=== PATIENT | female | born 1960 | race Caucasian/White ===

== ENCOUNTER 2023-03-08 02:43 | Inpatient (IN) | payer OTHER ==
[2023-03-08 06:18] LABS: #Monocytes 0.6 thou/uL (0.11-0.59); #Neutrophils 9.2 thou/uL (1.40-6.50); %Basophils 0.4 % (0.0-1.0); %Eosinophils 0.1 % (0.0-10.0); %Monocytes 5.4 % (0.0-10.0); %Neutrophils 80.7 % (42.0-75.0); Hematocrit 37.3 % (36.0-47.0); Hemoglobin 12.7 g/dL (12.0-16.0); Mean Corpuscular Hemoglobin 30.6 pg (27.0-31.0); Mean Corpuscular Volume 89.9 fl (78.0-98.0); Mean Platelet Volume 10.3 fL (7.4-10.4); Platelet Count 159 10x3/uL (130-400); RBC Distribution Width 12.7 % (11.5-14.5); Red Blood Cell (RBC) Count 4.15 mill/uL (4.20-5.40); White Blood Cell (WBC) Count 11.4 10x3/uL (4.8-10.8)
[2023-03-08 06:46] LABS: ALT (SGPT) 14 U/L (8-55); AST (SGOT) 17 U/L (5-34); Albumin 4.2 g/dL (3.4-4.8); Alkaline Phosphatase 37 U/L (40-110); Anion Gap 17 mmol/L (10-20); BUN (Urea Nitrogen) 19 mg/dL (9.8-20.1); Bilirubin, Total 0.3 mg/dL (0.2-1.2); Calc. Creatinine Clearance 0 mL/min (70-130); Calcium 9.3 mg/dL (7.8-10.44); Carbon Dioxide 18 mmol/L (23-31); Chloride 107 mmol/L (98-107); Estimated GFR 81; Globulin 2.2 g/dL (2.4-3.5); Glucose 280 mg/dL (80-115); Potassium 3.9 mmol/L (3.5-5.1); Protein, Total 6.4 g/dL (5.8-8.1); Sodium 138 mmol/L (136-145)
[2023-03-08] MEDS ORDERED: Acetaminophen 500 MG TAB ONE (10:10)
[2023-03-08] MEDS ORDERED: Meclizine HCl 25 MG TAB ONE (13:40)
[2023-03-08] MEDS ORDERED: Ondansetron PF 4 MG/2 ML Vial IVP PRN (15:04)
[2023-03-08] MEDS ORDERED: Ondansetron ODT 4 MG TAB PO PRN (15:04)
[2023-03-08] MEDS ORDERED: Dextrose 50% Abboject 50 ML SYRINGE SLOW IVP PRN (16:27)
[2023-03-08] MEDS ORDERED: HumaLOG 300 UNITS/3 ML VIAL SC PRN (16:27)
[2023-03-08] MEDS ORDERED: Dextrose 5% in Water 1,000 ML IV PRN (16:27)
[2023-03-08] MEDS ORDERED: Glucagon 1 MG/ML KIT IM PRN (16:27)
[2023-03-08 16:37] VITALS: BMI 25.7
[2023-03-08] MEDS: Acetaminophen 325 MG TAB PO PRN (21:08)
[2023-03-08] MEDS: Amoxicillin/Potassium Clav 875 MG TAB PO SCH (21:09)
[2023-03-09 04:38] LABS: #Eosinphils 0.1 thou/uL (0.0-0.7); #Monocytes 0.9 thou/uL (0.11-0.59); #Neutrophils 6.7 thou/uL (1.40-6.50); %Basophils 0.4 % (0.0-1.0); %Eosinophils 0.7 % (0.0-10.0); %Lymphocytes 23.7 % (21.0-51.0); %Neutrophils 65.6 % (42.0-75.0); Hemoglobin 13.1 g/dL (12.0-16.0); Mean Corpuscular HGB CONC 33.6 g/dL (32.0-36.0); Mean Corpuscular Hemoglobin 30.4 pg (27.0-31.0); Mean Corpuscular Volume 90.5 fl (78.0-98.0); Mean Platelet Volume 10.6 fL (7.4-10.4); Platelet Count 173 10x3/uL (130-400); RBC Distribution Width 12.8 % (11.5-14.5); Red Blood Cell (RBC) Count 4.31 mill/uL (4.20-5.40); White Blood Cell (WBC) Count 10.1 10x3/uL (4.8-10.8)
[2023-03-09 05:00] LABS: Anion Gap 11 mmol/L (10-20); BUN (Urea Nitrogen) 15 mg/dL (9.8-20.1); Calc. Creatinine Clearance 90 mL/min (70-130); Calcium 8.8 mg/dL (7.8-10.44); Carbon Dioxide 23 mmol/L (23-31); Chloride 108 mmol/L (98-107); Estimated GFR 90; Glucose 160 mg/dL (80-115); Potassium 3.6 mmol/L (3.5-5.1); Sodium 138 mmol/L (136-145)
[2023-03-09] MEDS: Amoxicillin/Potassium Clav 875 MG TAB PO SCH ×2 (08:31→22:43)
[2023-03-09] MEDS: Meclizine HCl 12.5 MG TAB PO SCH (18:42)
[2023-03-09] MEDS: Acetaminophen 325 MG TAB PO PRN (23:04)
[2023-03-10] MEDS: Meclizine HCl 12.5 MG TAB PO SCH ×3 (03:25→17:39)
[2023-03-10 05:30] LABS: #Eosinphils 0.1 thou/uL (0.0-0.7); #Monocytes 0.7 thou/uL (0.11-0.59); #Neutrophils 5.4 thou/uL (1.40-6.50); %Basophils 0.4 % (0.0-1.0); %Eosinophils 0.6 % (0.0-10.0); %Lymphocytes 25.3 % (21.0-51.0); %Monocytes 8.4 % (0.0-10.0); %Neutrophils 64.7 % (42.0-75.0); Hematocrit 39.8 % (36.0-47.0); Hemoglobin 13.3 g/dL (12.0-16.0); Mean Corpuscular HGB CONC 33.4 g/dL (32.0-36.0); Mean Corpuscular Hemoglobin 30.1 pg (27.0-31.0); Mean Platelet Volume 10.1 fL (7.4-10.4); Platelet Count 168 10x3/uL (130-400); RBC Distribution Width 12.8 % (11.5-14.5); Red Blood Cell (RBC) Count 4.42 mill/uL (4.20-5.40); White Blood Cell (WBC) Count 8.3 10x3/uL (4.8-10.8)
[2023-03-10 06:05] LABS: Anion Gap 12 mmol/L (10-20); BUN (Urea Nitrogen) 17 mg/dL (9.8-20.1); Calc. Creatinine Clearance 90 mL/min (70-130); Calcium 8.7 mg/dL (7.8-10.44); Carbon Dioxide 22 mmol/L (23-31); Chloride 108 mmol/L (98-107); Estimated GFR 90; Glucose 186 mg/dL (80-115); Potassium 3.6 mmol/L (3.5-5.1); Sodium 138 mmol/L (136-145)
[2023-03-10] MEDS: Amoxicillin/Potassium Clav 875 MG TAB PO SCH ×2 (08:23→22:10)
[2023-03-10] MEDS: Acetaminophen 325 MG TAB PO PRN (22:10)
[2023-03-11] MEDS: Meclizine HCl 12.5 MG TAB PO SCH ×3 (03:23→17:30)
[2023-03-11 05:46] LABS: #Eosinphils 0.1 thou/uL (0.0-0.7); #Monocytes 0.8 thou/uL (0.11-0.59); #Neutrophils 4.9 thou/uL (1.40-6.50); %Basophils 0.3 % (0.0-1.0); %Lymphocytes 31.7 % (21.0-51.0); %Monocytes 8.8 % (0.0-10.0); %Neutrophils 57.4 % (42.0-75.0); Hematocrit 38.8 % (36.0-47.0); Mean Corpuscular HGB CONC 33.5 g/dL (32.0-36.0); Mean Corpuscular Hemoglobin 30.2 pg (27.0-31.0); Mean Corpuscular Volume 90.2 fl (78.0-98.0); Mean Platelet Volume 10.6 fL (7.4-10.4); Platelet Count 193 10x3/uL (130-400); RBC Distribution Width 12.9 % (11.5-14.5); White Blood Cell (WBC) Count 8.6 10x3/uL (4.8-10.8)
[2023-03-11 06:07] LABS: Anion Gap 13 mmol/L (10-20); BUN (Urea Nitrogen) 16 mg/dL (9.8-20.1); Calc. Creatinine Clearance 94 mL/min (70-130); Calcium 8.9 mg/dL (7.8-10.44); Carbon Dioxide 22 mmol/L (23-31); Chloride 106 mmol/L (98-107); Estimated GFR 95; Glucose 158 mg/dL (80-115); Potassium 3.6 mmol/L (3.5-5.1); Sodium 137 mmol/L (136-145)
[2023-03-11] MEDS: Amoxicillin/Potassium Clav 875 MG TAB PO SCH ×2 (08:44→20:58)
[2023-03-11] MEDS ORDERED: FLU VACC QS2023-24(6MOS UP)/PF 60 MCG/0.5 ML SYRINGE IM ONE (09:00)
[2023-03-11] MEDS: Polyethylene Glycol 3350 17 GM Packet PO SCH (11:45)
[2023-03-11] MEDS: Senokot S 8.6-50 MG TAB PO SCH ×2 (11:46→20:58)
[2023-03-11] MEDS: HumaLOG 300 UNITS/3 ML VIAL SC PRN (20:58)
[2023-03-12] MEDS: Meclizine HCl 12.5 MG TAB PO SCH ×3 (04:54→17:21)
[2023-03-12] MEDS: Senokot S 8.6-50 MG TAB PO SCH ×3 (09:05→20:35)
[2023-03-12] MEDS: Amoxicillin/Potassium Clav 875 MG TAB PO SCH ×2 (09:05→20:34)
[2023-03-12] MEDS: Polyethylene Glycol 3350 17 GM Packet PO SCH (09:05)
[2023-03-12 19:38] VITALS: BP 123/76; TEMP 98.2
[2023-03-12] MEDS: HumaLOG 300 UNITS/3 ML VIAL SC PRN (20:34)
== END 2023-03-12 21:23 | DRG 552 ==
LOC: ERS 02:43 → ERHOLD 15:09 → T4-A 20:48
PROVIDERS: ADMIT Hospitalist; ATTEND Family Medicine
DX: M48.02 Spinal stenosis, cervical region (principal); M47.12 Other spondylosis with myelopathy, cervical region; E11.40 Type 2 diabetes mellitus with diabetic neuropathy, unspecified; I10 Essential (primary) hypertension; E05.90 Thyrotoxicosis, unspecified without thyrotoxic crisis or storm; E78.5 Hyperlipidemia, unspecified; S62.521A Displaced fracture of distal phalanx of right thumb, initial encounter for closed fracture; S00.83XA Contusion of other part of head, initial encounter; W19.XXXA Unspecified fall, initial encounter; Z98.890 Other specified postprocedural states; Z91.81 History of falling; Z90.89 Acquired absence of other organs
CPT/HCPCS: 36415; 36416; 70450; 72125; 72141; 80048; 80053; 85025; 96360; 96361; J1815

== ENCOUNTER 2023-04-10 05:36 | Day surgery (SDC) | payer OTHER ==
[2023-04-09 11:17] VITALS: BMI 25.7
[2023-04-10] MEDS ORDERED: Thrombin 5000 UNITS/5 ML VIAL ONE (06:11)
[2023-04-10] MEDS ORDERED: Vancomycin 1 GM VIAL ONE (06:11)
[2023-04-10 06:35] LABS: #Eosinphils 0.1 thou/uL (0.0-0.7); #Monocytes 0.6 thou/uL (0.11-0.59); #Neutrophils 4.7 thou/uL (1.40-6.50); %Basophils 0.4 % (0.0-1.0); %Eosinophils 1.6 % (0.0-10.0); %Lymphocytes 26.4 % (21.0-51.0); %Monocytes 8.3 % (0.0-10.0); Hematocrit 41.4 % (36.0-47.0); Hemoglobin 13.7 g/dL (12.0-16.0); Mean Corpuscular HGB CONC 33.1 g/dL (32.0-36.0); Mean Corpuscular Hemoglobin 30.1 pg (27.0-31.0); Mean Platelet Volume 9.8 fL (7.4-10.4); Platelet Count 167 10x3/uL (130-400); RBC Distribution Width 12.7 % (11.5-14.5); Red Blood Cell (RBC) Count 4.55 mill/uL (4.20-5.40); White Blood Cell (WBC) Count 7.5 10x3/uL (4.8-10.8)
[2023-04-10] MEDS ORDERED: LevoFLOXacin 500 mg/D5W 100 ML BAG ONE (06:38)
[2023-04-10] MEDS ORDERED: Clindamycin/D5W 900 mg/50 ml Premix Bag ONE (06:51)
[2023-04-10 06:53] LABS: PTT 26.7 sec (22.9-36.1); Prothrombin Time 13.1 sec (12.0-14.7)
[2023-04-10] MEDS ORDERED: Fentanyl 250 MCG/5 ML VIAL ONE (07:07)
[2023-04-10] MEDS ORDERED: PROPOFOL 20 ML ONE (07:07)
[2023-04-10] MEDS ORDERED: ePHEDrine Sulfate 50 MG/10 ML VIAL ONE (07:27)
[2023-04-10] MEDS ORDERED: Rocuronium Bromide 10 MG/ML (10ML VIAL) ONE (07:31)
[2023-04-10] MEDS ORDERED: Ondansetron PF 4 MG/2 ML Vial ONE ×2 (07:31→08:39)
[2023-04-10] MEDS ORDERED: Dexamethasone 4 mg/ml Vial ONE (07:31)
[2023-04-10] MEDS ORDERED: SUGAMMADEX SODIUM 200 MG/2 ML VIAL ONE (08:38)
[2023-04-10] MEDS ORDERED: Ketorolac Tromethamine 30 MG/ML VIAL ONE (09:32)
[2023-04-10] MEDS ORDERED: fentaNYL 50 mcg/mL 1 mL Vial ONE (10:33)
== END 2023-04-10 13:15 | disposition home or self-care (01) ==
LOC: SDC 05:36
PROVIDERS: ATTEND Neurological Surgery
PROC: 0RG20A0 Fusion of 2 or more Cervical Vertebral Joints with Interbody Fusion Device, Anterior Approach, Anterior Column, Open Approach (ICD-10-PCS; principal; 2023-04-10)
PROC: 0RG00A0 Fusion of Occipital-cervical Joint with Interbody Fusion Device, Anterior Approach, Anterior Column, Open Approach (ICD-10-PCS; principal; 2023-04-10)
DX: M50.021 Cervical disc disorder at C4-C5 level with myelopathy (principal); M50.022 Cervical disc disorder at C5-C6 level with myelopathy; M47.12 Other spondylosis with myelopathy, cervical region; E11.9 Type 2 diabetes mellitus without complications; E03.9 Hypothyroidism, unspecified; M10.9 Gout, unspecified; Z79.84 Long term (current) use of oral hypoglycemic drugs; Z79.899 Other long term (current) drug therapy; Z88.1 Allergy status to other antibiotic agents; Z88.6 Allergy status to analgesic agent; Z91.011 Allergy to milk products
CPT/HCPCS: 85025; 85610; 85730; C1713; J1100; J1885; J1956; J2405; J2704; J3010; J3370; J3490